=== PATIENT | female | born 1940 | race Caucasian/White ===

== ENCOUNTER → 2017-02-21 | Outpatient (CLI) | payer MEDICARE, OTHER ==
[~2017-02-21] MED LIST: ACETAMINOPHEN PO; ACETAMINOPHEN325 MG PO; ACIDOPHILUS1 EAC1 PO; ALIGN4 MG PO; ALLEGRA PO; AUGMENTIN875 MG PO; BYSTOLIC5 MG PO; CARAFATE; CARAFATE PO; CARAFATE1 G PO; COLACE PO; COMBIVENT INH14.7 GM INH; CRESTOR10 MG PO; DESYREL50 M1 PO; DICYCLOMINE HCL10 MG PO; FISH OIL 1,0001 CA2 PO; IMODIUM2 MG PO; LEVAQUIN750 M1 PO; LEVSIN PO; LEXAPRO PO; LEXAPRO20 MG PO; LISINOPRIL PO; LOMOTIL TABLET1 TAB PO; LOSARTAN POTASS50 MG PO; LYRICA PO; LYRICA50 MG PO; MONTELUKAST SOD10 MG PO; NASONEX17 GM; NORVASC PO; NORVASC10 MG PO; OMEPRAZOLE20 M1 PO; OXCARBAZEPINE150 M1 PO; PERCOCET5/325 PO; PULMICORT180 MCG/A1 INH; PULMICORT200 MCG/AE INH; SINGULAIR PO; STRATTERA PO; STRATTERA100 MG PO; TIZANIDINE HCL2 MG PO; TOPROL XL PO; TRAZODONE PO; VITAMIN D5000 UNIT PO; WOMEN'S DAILY1 EACH PO; ZOCOR PO
--- NOTE | ~2017-02-21 | MR104 ---
[facility] A Service of [facility] & [facility] RADIOLOGY TEXT RESULTS PATIENT: JOSÉ MIGUEL AMBROSE LOCATION: [facility] : 38 UNIT #: [id number] AGE: [address]: Roseline Montalvo SEX: F ORDER DR: [id number] [facility] [address] [place], [place] [address] [id number] O MR#: [id number] Acc #: [id number] NAME: JOSÉ MIGUEL AMBROSE : 1940 SEX: F STUDY DATE/TIME: 02/21/2017 14:37 UNIT: [facility] ROOM: STUDY DESCRIPTION: MR Knee Wo Contrast Rt Attending Physician: Roseline Montalvo P.A.-C. Referring Physician: Roseline Montalvo P.A.-C. Ordering Physician: Roseline Montalvo P.A.-C. Primary Care Physician: Contreras Whitmore M.D. MRI CENTER REPORT This report is preliminary unless electronic signature is present. EXAM MRI of the right knee without contrast. HISTORY 76-year-old female with medial right knee pain for 2-3 weeks. No specific trauma. COMPARISON Bilateral knee films, 02/14/2017. FINDINGS Multiplanar, multiecho imaging performed of the right knee utilizing a high field magnet dedicated protocol. Examination demonstrates early degenerative arthropathy of the knee most prominent within the medial compartment with developing marginal osteophytes. Diffuse cartilage thinning noted in the medial compartment but no focal area of high-grade chondromalacia seen in the medial compartment. In the lateral compartment there is mild chondromalacia. In the patellofemoral compartment, moderate to high-grade chondromalacia noted along the median ridge and medial patellar facet. Small knee effusion. Medial meniscus demonstrates a horizontal cleavage tear midbody segment of the meniscus extending towards the posterior horn. The tear is estimated just over a centimeter in length. There is some associated meniscal capsular edema but no parameniscal cyst. The lateral meniscus appears intact. Anterior and posterior cruciate ligaments appear intact. Collateral ligaments and extensor mechanism unremarkable. There is some nonspecific edema superficial and deep to the MCL. Extraarticular soft tissues appear normal. IMPRESSION STS. [facility] A Service of [facility] & [facility] RADIOLOGY TEXT RESULTS PATIENT: JOSÉ MIGUEL AMBROSE LOCATION: [facility] : 38 UNIT #: [id number] AGE: [address]: Roseline Montalvo SEX: F ORDER DR: 1. Developing tricompartment degenerative arthropathy of the knee with medial and patellofemoral compartment predominance. Focal areas of high-grade chondromalacia noted along the medial patellar facet and median ridge of the patella. 2. Horizontal cleavage tear midbody segment medial meniscus extending towards the posterior horn. Tear estimated just over a centimeter in length. 3. Small knee effusion nonspecific inflammation in the medial aspect of the knee. Dictated by... Taylor José M.D. THIS IS AN ELECTRONICALLY VERIFIED REPORT Taylor José M.D. at 02/22/2017 2:31 PM [place] TD: 02/22/2017 14:11 JOB #: [id number] MRI CENTER REPORT Page 1 of 1 COPY
== END | disposition home or self-care (01) ==
LOC: CMRI 14:05
DX: M17.11 Unilateral primary osteoarthritis, right knee (principal); M22.41 Chondromalacia patellae, right knee; S83.241A Other tear of medial meniscus, current injury, right knee, initial encounter; M25.461 Effusion, right knee
CPT/HCPCS: 73721